=== PATIENT | female | born 1965 | race Caucasian/White ===

== ENCOUNTER 2024-03-24 23:47 | Emergency (ER) | payer OTHER, SELFPAY ==
--- OUTSIDE RECORDS SUMMARY | 2024-03-24 23:50 | XMS REPORT | Continuity of Care Document ---
Author Name Unknown Address [address] [facility]. [address] [place], [place] [id number] [place] [address] [address] [facility] [place] [address] Care Team Providers Care Acid Painter Name Role Phone MONAE MUNROE Primary Care Physician EDIS Xie Attending Clinician Unavailable SHIVAM GOMEZ Attending Clinician Unavail able SHIVAM GOMEZ Attending Clinician Unavail able MONAE MUNROE Attending Clinician Unavaila ble [place]leguyen_Tho Attending Clinician Unavailable Edis Funez Attending Clinician LUCY DANIELS Attending Clinician Unavailable Nguyen_Tho Admitting Clinician Unavailable Payers Payer Name Policy Type Policy Number Effective Date Expirati on Date Source [employer] [id number] 2022 00:00:00 Problems Condition Name Condition Details Condition Category Status Onset Date Resolution Date Last Treatment Date Treating Clinician Comments Source S/P cervical spinal fusion S/P cervical spinal fusion Disease Active 12-18 00:00: 00 [facility] Muscle tightness Muscle tightness Disease Active 12-18 00:00: 00 [facility] Decreased range of motion of shoulder, unspecifie d laterality Decreased range of motion of shoulder, unspecifie d laterality Disease Active 12-18 00:00: 00 [facility] Muscle weakness Muscle weakness Disease Active 12-18 00:00: 00 [facility] Cervical spine degenerati on Cervical spine degenerati on Disease Active 11-19 00:00: 00 [facility] Obesity (BMI 30-39.9) Obesity (BMI 30-39.9) Disease Active 09-30 00:00: 00 [facility] Chronic pain syndrome Chronic pain syndrome Disease Active 07-04 00:00: 00 [facility] Bipolar I disorder, most recent episode (or current) mixed Bipolar I disorder, most recent episode (or current) mixed Disease Active 07-25 00:00: 00 [facility] Persistent disorder of initiating or maintainin g sleep Persistent disorder of initiating or maintainin g sleep Disease Active 07-25 00:00: 00 [facility] Neuropathy Neuropathy Disease Active 07-01 00:00: 00 [facility] Status post lumbar surgery Status post lumbar surgery Disease Active 07-01 00:00: 00 [facility] H/O: CVA (cerebrova scular accident) H/O: CVA (cerebrova scular accident) Disease Active 07-01 00:00: 00 [facility] Depression Depression Disease Active 07-01 00:00: 00 [facility] Generalize d anxiety disorder Generalize d anxiety disorder Disease Active 07-01 00:00: 00 [facility] Allergies, Adverse Reactions, Alerts Allergy Name Allergy Type Status Severity Reaction(s) Onset Date Inactive Date Treating Clinician Comments Source NO KNOWN ALLERGIE S Drug Class Active [facility] Social History Social Habit Start Date Stop Date Quantity Comments Source Tobacco Comment health coaching/handout s declined [facility] Sex Assigned At [facility] Alcohol intake [facility] Cigarettes smoked current (pack per day) - Reported 2018-04-05 00:00:00 2018-04-05 00:00:00 [facility] Cigarette pack-years 2018-04-05 00:00:00 2018-04-05 00:00:00 [facility] History of tobacco use 2016-11-19 00:00:00 Cigarette Smoker [facility] Smoking Status Start Date Stop Date Source Former smoker 2018-04-05 00:00:00 2018-04-05 00:00:00 [facility] Medications Ordered Medication Name Filled Medication Name Start Date Stop Date Current Medication? Ordering Clinician Indication Dosage Frequency Signature (SIG) Comments Components Source SYMBICORT 160-4.5 mcg/actuati on inhaler 7-15 00:00: 00 Yes INHALE 2 PUFFS BY MOUTH TWICE A DAY [facility] CYCLOBENZAP RINE 10 mg tablet 08 00:00: 00 Yes TAKE 1 TABLET BY MOUTH THREE TIMES A DAY [facility] mirtazapine 30 mg tablet 4-05 00:00: 00 Yes [id number] 30mg Take 1 tablet by mouth at bedtime. [facility] meloxicam (MOBIC) 15 mg tablet 3-11 00:00: 00 Yes [id number] 15mg Take 1 tablet by mouth once daily as needed for Pain. [facility] desvenlafax ine succinate 50 mg 24 hr tablet 06-23 00:00: 00 Yes [id number] 50mg Take 1 tablet by mouth daily. [facility] desvenlafax ine succinate (PRISTIQ) 100 mg 24 hr tablet 06-23 00:00: 00 Yes [id number] 100mg Take 1 tablet by mouth daily. [facility] nortriptyli ne 25 mg capsule 05-07 00:00: 00 Yes 25mg Take 1 capsule by mouth at bedtime. [facility] cyclobenzap rine 10 mg tablet 05-07 00:00: 00 Yes 10mg Take 1 tablet by mouth 3 (three) times daily. [facility] meloxicam (MOBIC) 15 mg tablet 2017-05 00:00: 00 Yes 15mg Take 1 tablet by mouth daily. [facility] acetaminoph en-codeine (TYLENOL-CO DEINE #3) 300-30 mg tablet 2017-05 00:00: 00 Yes 1{tbl} Take 1 tablet by mouth every 4 (four) hours as needed for Pain (scale 4-6). [facility] traMADOL 50 mg tablet 2017-05 00:00: 00 Yes 50mg Take 1 tablet by mouth every 6 (six) hours as needed for Pain (scale 4-6) or Pain (scale 7-10). [facility] methocarbam ol 750 mg tablet 2017-05 0 00:00: 00 Yes 750mg Take 1 tablet by mouth 3 (three) times daily. [facility] albuterol sulfate (PROAIR RESPICLICK) 90 mcg/actuati on AePB 01-25 00:00: 00 Yes 2{each} Inhale 2 Each every 4 (four) hours as needed (sob). [facility] tiotropium bromide (SPIRIVA RESPIMAT) 2.5 mcg/actuati on Mist 01-25 00:00: 00 Yes 2{puff} Inhale [address] [facility] methylPREDN ISolone (MEDROL, ADRYAN,) 4 mg tablets 05-07 00:00: 00 Yes Follow package directions [facility] atorvastati n (LIPITOR) 80 mg tablet 01-12 00:00: 00 Yes [id number] 80mg Take 1 tablet by mouth at bedtime. [facility] ARIPiprazol e 5 mg tablet 12-30 00:00: 00 Yes TAKE 1 TABLET BY MOUTH DAILY. [facility] carBAMazepi ne 200 mg 12 hr tablet 12-23 00:00: 00 Yes TAKE 1 TABLET BY MOUTH 2 (TWO) TIMES DAILY. [facility] sennosides- docusate sodium 8.6-50 mg per tablet 11-20 00:00: 00 Yes 1{tbl} Take 1 tablet by mouth 2 (two) times daily. [facility] ursodiol 500 mg tablet 10-26 00:00: 00 Yes TAKE 1 TABLET BY MOUTH 2 (TWO) TIMES DAILY FOR [address] [facility] omeprazole 40 mg capsule 07-04 00:00: 00 Yes [id number] TAKE ONE CAPSULE BY MOUTH EVERY DAY [facility] azithromyci n (ZITHROMAX) 250 mg tablet 01-03 00:00: 00 Yes [id number] Z-Adryan = 500mg day 1, then 250mg days [address] [facility] Encounters Start Date/Time End Date/Time Encounter Type Admission Type Attending [facility] Care Department Encounter ID Source 2024-02-12 15:00:00 Inpatient EDIS MAX [facility] [id number] [facility] 2023-03-05 13:30:00 Inpatient Edis Max [facility] [id number] [facility] 2023-02-13 13:25:00 2023-02-13 13:25:00 Outpatient EDIS MAX [facility] [id number] [facility] 2023-01-20 14:00:00 2023-01-20 14:00:00 Outpatient SHIVAM [facility] [id number] [facility] 2022-12-15 09:43:00 2022-12-15 09:43:00 Outpatient SUMAN CASTRORUBYMONAE ANGUIANO [facility] [id number] [facility] 2022-12-04 12:27:00 2022-12-04 12:27:00 Outpatient MONAE DESAI [facility] [id number] [facility] 2021-05-29 02:35:00 2021-05-29 02:35:00 Outpatient Nguyen_Tho [facility] [id number] [facility] 2021 05:05:00 2021 05:05:00 Outpatient Nguyen_Tho [facility] [id number] [facility] 2019-01-20 00:00:00 2019-01-20 00:00:00 Edis Sanders [facility] [id number] [facility] 2019-01-04 00:00:00 2019-01-04 00:00:00 Edis Sanders [facility] [id number] [facility] 2014-08-31 19:04:00 2014-08-31 22:15:00 Emergency ER LUCY DANIELS [facility] [id number] [facility]
[2024-03-25] MEDS ORDERED: LEVETIRACETAM 500 MG/5 ML VIAL IV ONE (00:10)
[2024-03-25] MEDS ORDERED: NA CHLORIDE 0.9% 100 ML ONE (00:15)
[2024-03-25 01:28] LABS: Absolute Basophils 0.1 K/uL (0-0.5); Absolute Eosinophils 0.1 K/uL (0-0.5); Absolute Lymphocytes (CBC) 1.9 K/uL (0.7-4.9); Absolute Monocytes 0.7 K/uL (0.1-1.3); Absolute Neutrophil 7.5 K/uL (1.8-8.0); Basophils % 0.7 % (0-1.3); Eosinophils % 0.5 % (0-4.4); Hematocrit 35.5 % (36.0-45.0); Hemoglobin 10.9 g/dL (12.0-15.0); Lymphocytes % 19.1 % (15.3-44.8); MCH 25.4 pg (27.0-35.0); MCHC 30.6 g/dL (32.0-36.0); MCV 82.9 fL (80-100); MPV 9.6 fL (7.6-11.3); Monocytes % 6.7 % (3.3-12.3); Nucleated Red Blood Cells % 0.1 % (0-0); Platelets 201 thou/uL (152-406); RBC Red Blood Cell Count 4.29 M/uL (3.86-4.86); Red Cell Distribution Width 19.2 % (12.1-15.2)
[2024-03-25 01:31] LABS: PT Prothrombin Time 9.9 SECONDS (9.4-12.5); PTT, Activated Partial Thromb 21.5 SECONDS (24.3-36.9); Protime INR 0.88
[2024-03-25 01:50] LABS: ALT/SGPT 15 U/L (13-56); AST/SGOT 23 U/L (15-37); Albumin 3.1 g/dL (3.4-5.0); Albumin/Globulin Ratio 0.9 (1.1-1.8); Alkaline Phosphatase 107 U/L (45-117); Anion Gap 15.7 mEq/L (5.0-15.0); BUN Blood Urea Nitrogen 14 mg/dL (7-18); Bicarbonate 15 mEq/L (21-32); Bilirubin Direct < 0.2 mg/dL (0-0.2); Bilirubin Indirect, Calculated 0.1 mg/dL (0.2-0.8); Bilirubin Total 0.3 mg/dL (0.2-1.0); Globulin 3.6 g/dL (2.3-3.5); Glomerular Filtration Rate 72 ml/min (=/>90); Glucose Level 109 mg/dL (74-106); Potassium 3.7 mEq/L (3.5-5.1); Protein, Total 6.7 g/dL (6.4-8.2); Sodium Level 139 mEq/L (136-145)
[2024-03-25 02:09] LABS: Barbiturates NEGATIVE (NEGATIVE); Benzodiazepines NEGATIVE (NEGATIVE); Cocaine NEGATIVE (NEGATIVE); METHAMPHETAM NEGATIVE (NEGATIVE); Methadone NEGATIVE (NEGATIVE); Opiates NEGATIVE (NEGATIVE); Phencyclidine NEGATIVE (NEGATIVE); THC Cannibis NEGATIVE (NEGATIVE)
--- NOTE | 2024-03-25 02:45 | RAD REPORT ---
EXAM DESCRIPTION: CT HEAD AND CERVICAL SPINE WITHOUT IV CONTRAST 03/25/2024 1:03 AM [facility] CLINICAL HISTORY: 59 years, Female, Seizure, trauma, found down. COMPARISON: None. TECHNIQUE: CT imaging of the head and cervical spine were performed without IV contrast. Subsequent 2 -D multiplanar reformats were generated in the sagittal and coronal plane and reviewed. This exam was performed according to our departmental dose-optimization program which includes use of Automated Exposure Control, adjustment of the mA and/or kV according to patient size and/or use of iterative reconstruction technique. Contrast: No intravenous contrast. FINDINGS: Head: Brain: Brain parenchyma as well as the baez-white matter differentiation demonstrate to be within nor mal limits. There is no evidence for acute intraparenchymal hemorrhage. There is no midline shifts and/or mass effect. No focal areas of hypodensities Ventricles/CSF spaces: Normal size and morphology. Orbits: Normal. Paranasal sinuses: Imaged paranasal sinuses are clear. Mastoids/middle ears: Clear. Bones: Calvarium, skull base, and imaged facial bones are normal. Scalp/facial soft tissues: No acute scalp or soft tissue injury. Cervical spine: Curvature: The lordotic curve is preserved. The alignment, of the vertebral bodies are normal. Bones: There is no evidence of fracture or subluxation. Discs: There is degenerative disc disease with anterior spondylosis and posterior osteophyte complex at C4-C6. Spur formation/increased sclerosis anterior arch of C1 and dens. There is there is spinal canal narrowing at C5/C6. Joints: The uncovertebral joints demonstrate unremarkable. Soft tissues: There is no prevertebral soft tissue swelling. Sagittal coronal reformatted images demonstrate no subluxation or bony abnormalities. Lung apices: The lung apices demonstrate to be within normal limits. IMPRESSION: No acute intracranial hemorrhage. No evidence for acute fracture or subluxation of the cervical spine. Degenerative disc disease at C4-C6 with spinal canal narrowing at C5/C6. Electronically signed by: Geronimo Brown MD 03/25/2024 02:00 AM [facility] Due to temporary technical issues with the PACS/Kiyon reporting system, reports are being black d by the in-house radiologist without review as a courtesy to ensure prompt reporting the interpreting radiologist is fully responsible for the content of the report. Transcribed Date/Time: 03/25/2024 2:45 AM
--- NOTE | 2024-03-25 02:50 | ER ---
Nurse's Notes [facility] Name: Jo Ann Stark Age: 59 yrs Sex: Female : 1965 Arrival Date: 03/24/2024 Time: 23:47 Bed 4 Private MD: Diagnosis: Seizure, altered mental status Presentation: 03/24 23:51 Chief complaint: EMS states: PT found in [facility] bathroom. EMS called by staff. PT lg3 stated to EMS that she had a history of seizures and has been off of her Keppra X3 days. one witnessed seizure by EMS in route. IV initiated. no medications administered. Coronavirus screen: At this time, unable to obtain information related to travel outside the [place] Ebola Screen: No symptoms or risks identified at this time. Initial Sepsis Screen: Does the patient meet any 2 criteria? No. Patient's initial sepsis screen is negative. Does the patient have a suspected source of infection? No. Patient's initial sepsis screen is negative. Risk Assessment: Do you want to hurt yourself or someone else? Patient reports no desire to harm self or others. Onset of symptoms was March 24, 2024. 23:51 Method Of Arrival: EMS: [facility] lg3 23:51 Acuity: JAUN 3 lg3 Triage Assessment: 03/25 00:01 General: Appears in no apparent distress. Behavior is flat. Pain: Denies pain. EENT: No lg3 deficits noted. Neuro: Browne Agitation-Sedation Scale (RASS): -1 Drowsy Level of Consciousness is post ictal. Cardiovascular: No deficits noted. Capillary refill < 3 seconds Clubbing of nail beds is absent JVD is absent Patient's skin is warm and dry. Respiratory: No deficits noted. Airway is patent Respiratory effort is even, unlabored, Respiratory pattern is regular, symmetrical. GI: No deficits noted. Abdomen is round non-distended, obese. : No signs and/or symptoms were reported regarding the genitourinary system. Derm: No deficits noted. Skin is intact, is healthy with good turgor, Skin is dry, Skin is normal, Skin temperature is warm. Musculoskeletal: No deficits noted. Circulation, motion, and sensation intact. Range of motion: intact in all extremities. Historical: - Allergies: 00:01 Unable to obtain; lg3 - Home Meds: 00:01 Keppra Oral [Active]; lg3 - PMHx: 00:01 Seizure; lg3 - PSHx: 00:01 Unable to Obtain; lg3 - Immunization history:: Adult Immunizations unknown. - Infectious Disease History:: Denies. - Social history:: Smoking status: unknown. Screenin:54 [facility] ED Fall Risk Assessment (Adult) History of falling in the last 3 months, bm8 including since admission No falls in past 3 months (0 pts) Confusion or Disorientation No (0 pts) Intoxicated or Sedated No (0 pts) Impaired Gait No (0 pts) Mobility Assist Device Used No (0 pt) Altered Elimination No (0 pt) Score/Fall Risk Level 0 - 2 = Low Risk Oriented to surroundings, Maintained a safe environment, Educated pt \T\ family on fall prevention, incl call for assistance when getting out of bed, Assessed \T\ reinforced patient's understanding of fall precautions, Hourly rounding (assess needs \T\ fall precautionary measures) done, Used ambulatory aids as needed (educated on \T\ assisted with), Used gait belt as appropriate. Abuse screen: Denies threats or abuse. Nutritional screening: No deficits noted. Tuberculosis screening: No symptoms or risk factors identified. Assessment: 02:54 Reassessment: Patient appears in no apparent distress at this time. Patient and/or bm8 family updated on plan of care and expected duration. Pain level reassessed. Patient is alert, oriented x 3, equal unlabored respirations, skin warm/dry/pink. pt up and ambulating with minimal assistance. pt able to ambulate approximate 60 feet. Patient denies pain at this time. Patient states feeling better. Patient states symptoms have improved. 03:20 Reassessment:. ha1 03:21 Reassessment: pt is awaiting transportation home. pt to remain in room until 8 transportation to arrive. 03:24 Reassessment: Pt was safely walked by group underwriter and one Tech. steady gait, alert and ay oriented to self, place, and situation. No any distress noted. 03:30 Reassessment: Pt provided a number to her 's phone. The number was called x3 but ay was never answered. Voice mail was not set up on the phone. 04:00 Reassessment: Patient denies pain at this time. ay 04:00 Reassessment: Patient appears in no apparent distress at this time. ay 05:09 Reassessment: No changes from previously documented assessment. ay 06:04 Reassessment: Patient appears in no apparent distress at this time. Patient and/or bm8 family updated on plan of care and expected duration. Pain level reassessed. Patient is alert, oriented x 3, equal unlabored respirations, skin warm/dry/pink. Patient denies pain at this time. Patient states feeling better. Patient states symptoms have improved. General: Appears in no apparent distress. comfortable, Behavior is calm, cooperative, appropriate for age. Pain: Denies pain. Neuro: No deficits noted. Level of Consciousness is awake, alert, obeys commands, Oriented to person, place, time, situation, Appropriate for age Engineering Assistant are equal bilaterally Moves all extremities. Full function Gait is steady, Speech is normal, Facial symmetry appears normal, Pupils are PERRLA. Vital Signs: 03/24 23:51 BP 118 / 78; Pulse 89; Resp 16 S; Temp 98.1(O); Pulse Ox 97% on R/A; Weight 113.4 kg lg3 (R); Height 5 ft. 9 in. (R); 03/25 04:00 BP 110 / 76; Pulse 79; Resp 20; Pulse Ox 97% on R/A; ay 05:00 BP 91 / 70; Pulse 77; Resp 18; Pulse Ox 97% on R/A; ay 06:05 BP 105 / 74; Pulse 80; Resp 17; Temp 98.1; Pulse Ox 97% ; Pain 0/10; bm8 03/24 23:51 Body Mass Index 36.92 (113.40 kg, 175.26 cm) lg3 06:05 Pain Scale: Adult bm8 Merissa Coma Score: 00:01 Eye Response: to voice(3). Motor Response: localizes pain(5). Verbal Response: lg3 confused(4). Total: 12. 02:54 Eye Response: spontaneous(4). Motor Response: obeys commands(6). Verbal Response: bm8 oriented(5). Total: 15. 06:05 Eye Response: spontaneous(4). Motor Response: obeys commands(6). Verbal Response: bm8 oriented(5). Total: 15. ED Course: 03/24 23:51 Patient arrived in ED. lg3 23:51 John Paul Brown MD is Attending Physician. sp3 03/25 00:01 Triage completed. lg3 00:01 Arm band placed on right wrist. lg3 00:03 Maintain EMS IV. Dressing intact. Good blood return noted. Site clean \T\ dry. Gauge \T\ lg 3 site: 22G L Hand. Flushed with 10 mL NS. 00:06 Guille Teague, RN is Primary Nurse. ay 00:43 CT Head C Spine In Process Unspecified. EDMS 02:54 Patient has correct armband on for positive identification. Placed in gown. Bed in low bm8 position. Call light in reach. Side rails up X 1. Seizure precautions initiated. Provided Education on: post er care. Client placed on continuous cardiac and pulse oximetry monitoring. NIBP monitoring applied. Pulse ox on. NIBP on. Door closed. Noise minimized. Warm blanket given. Pillow given. Verbal reassurance given. 02:54 No provider procedures requiring assistance completed. IV discontinued, intact, bm8 bleeding controlled, No redness/swelling at site. Pressure dressing applied. Patient maintains SpO2 saturation greater than 95% on room air. Administered Medications: 00:35 Drug: Keppra IV 1000 mg IV at calculated rate once Route: IV; Rate: calculated rate; bm8 Site: left hand; 03:19 Follow up: Response: No adverse reaction; IV Status: Completed infusion; IV Intake: ha1 100ml Medication: 02:54 VIS not applicable for this client. bm8 Intake: 03:19 IV: 100ml; Total: 100ml. ha1 Outcome: 02:50 Discharge ordered by . sp3 02:54 Discharged to home ambulatory, bm8 02:54 Condition: stable 02:54 Discharge instructions given to patient, family, Instructed on discharge instructions, follow up and referral plans. medication usage, safety practices, Demonstrated understanding of instructions, follow-up care, medications, 02:57 Prescriptions given X 1, bm8 06:08 Patient left the ED. bm8 Signatures: Dispatcher [employer] EDMS Meredith Gonsalez RN RN lg3 John Paul Brown MD MD sp3 Lashonda Rush RN RN ha1 Ricardo Rodney RN RN bm8 Guille Teague RN RN ay Corrections: (The following items were deleted from the chart) 00:01 00:01 Home Meds: Unable to obtain; lg3 lg3
--- NOTE | 2024-03-25 02:50 | EDPHYS ---
Physician Documentation [facility] Name: Jo Ann Stark Age: 59 yrs Sex: Female : 1965 Arrival Date: 03/24/2024 Time: 23:47 Bed 4 Private MD: ED Physician John Paul Brown HPI: 03/25 00:03 This 59 yrs old Female presents to ER via EMS with complaints of Seizure. sp3 00:03 59-year-old female with history of seizures found with altered mental status in a sp3 [facility] by [facility] [facility] who activated EMS and brought her to the ED. Patient had seizure in the ambulance as well. She was alert and oriented x 4 upon initial arrival however is now postictal. Per EMS, patient ran out of her Keppra for the last 4 days. She denied at that time any other symptoms including headache, chest pain or shortness of breath. Currently patient is postictal therefore history, physical and ROS is limited.. Historical: - Allergies: 00:01 Unable to obtain; lg3 - Home Meds: 00:01 Keppra Oral [Active]; lg3 - PMHx: 00:01 Seizure; lg3 - PSHx: 00:01 Unable to Obtain; lg3 - Immunization history:: Adult Immunizations unknown. - Infectious Disease History:: Denies. - Social history:: Smoking status: unknown. ROS: 00:03 Unable to obtain ROS due to altered mental status, sp3 Exam: 00:04 Constitutional: This is a well developed, well nourished patient who is awake, alert, sp3 and in no acute distress. Neck: Trachea midline, no thyromegaly or masses palpated, and no cervical lymphadenopathy. Supple, full range of motion without nuchal rigidity, or vertebral point tenderness. No Meningismus. Chest/axilla: Normal chest wall appearance and motion. Nontender with no deformity. No lesions are appreciated. Cardiovascular: Regular rate and rhythm with a normal S1 and S2. No gallops, murmurs, or rubs. Normal PMI, no JVD. No pulse deficits. Respiratory: Lungs have equal breath sounds bilaterally, clear to auscultation and percussion. No rales, rhonchi or wheezes noted. No increased work of breathing, no retractions or nasal flaring. Back: No spinal tenderness. No costovertebral tenderness. Full range of motion. 00:04 Neuro: Patient postictal however arousable. Moves all 4 extremities. Ocular exam is normal including pupils. Vital signs currently normal., Vital Signs: 03/24 23:51 BP 118 / 78; Pulse 89; Resp 16 S; Temp 98.1(O); Pulse Ox 97% on R/A; Weight 113.4 kg lg3 (R); Height 5 ft. 9 in. (R); 03/25 04:00 BP 110 / 76; Pulse 79; Resp 20; Pulse Ox 97% on R/A; ay 05:00 BP 91 / 70; Pulse 77; Resp 18; Pulse Ox 97% on R/A; ay 06:05 BP 105 / 74; Pulse 80; Resp 17; Temp 98.1; Pulse Ox 97% ; Pain 0/10; bm8 03/24 23:51 Body Mass Index 36.92 (113.40 kg, 175.26 cm) lg3 06:05 Pain Scale: Adult bm8 [place] Coma Score: 00:01 Eye Response: to voice(3). Motor Response: localizes pain(5). Verbal Response: lg3 confused(4). Total: 12. 02:54 Eye Response: spontaneous(4). Motor Response: obeys commands(6). Verbal Response: bm8 oriented(5). Total: 15. 06:05 Eye Response: spontaneous(4). Motor Response: obeys commands(6). Verbal Response: bm8 oriented(5). Total: 15. MDM: 03/24 23:51 Medical Screening Exam initiated sp3 03/25 00:04 Data reviewed: vital signs, nurses notes, EMS record, old medical records, lab test sp3 result(s), radiologic studies. ED course: 59-year-old female with seizure and altered mental status. Differential diagnosis includes seizure, postictal period, other intracranial process, electrolyte disturbance, among others. Workup will include full laboratory workup including toxicology, CT scan of the head and general observation. Keppra 1 g IV will be given. Disposition pending workup and patient course.. 02:49 ED course: Full workup negative including CT head and toxicology. Patient is now sleepy sp3 but arousable. We will refill her Keppra and discharge her home. Vital signs are normal.. 03/24 23:52 Order name: Acetaminophen; Complete Time: 02: sp3 03/24 23:52 Order name: Basic Metabolic Panel; Complete Time: 02: sp3 03/24 23:52 Order name: CBC with Diff; Complete Time: 02: sp3 03/24 23:52 Order name: ETOH Level; Complete Time: 02: sp3 03/24 23:52 Order name: Hepatic Function; Complete Time: 02: sp3 03/24 23:52 Order name: PT-INR; Complete Time: 02: sp3 03/24 23:52 Order name: Ptt, Activated; Complete Time: 02: sp3 03/24 23:52 Order name: Salicylate; Complete Time: 02: sp3 03/24 23:52 Order name: Urine Drug Screen; Complete Time: 02: sp3 03/24 23:52 Order name: CT Head C Spine; Complete Time: 02:47 sp3 03/24 23:52 Order name: IV Saline Lock; Complete Time: 00:13 sp3 03/24 23:52 Order name: Labs collected and sent; Complete Time: 00:13 sp3 03/24 23:52 Order name: Suicide Screening ([place]); Complete Time: 00: sp3 03/24 23:53 Order name: Cath; Complete Time: 03:19 sp3 Administered Medications: 00:35 Drug: Keppra IV 1000 mg IV at calculated rate once Route: IV; Rate: calculated rate; bm8 Site: left hand; 03:19 Follow up: Response: No adverse reaction; IV Status: Completed infusion; IV Intake: ha1 100ml Disposition Summary: 03/25/24 02:50 Discharge Ordered Notes: Location: Home sp3 Condition: Stable sp3 Diagnosis - Seizure, altered mental status sp3 Followup: sp3 - With: Private Physician - When: Upon discharge from the Emergency Department - Reason: Continuance of care Discharge Instructions: - Discharge Summary Sheet sp3 - Seizure, Adult sp3 Forms: - Medication Reconciliation Form sp3 - Antibiotic Education sp3 - Prescription Opioid Use sp3 - Patient Portal Instructions sp3 - Leadership Thank You Letter sp3 Prescriptions: - Keppra 500 mg Oral Tablet - take 1 tablet ORAL route every 12 hours; 20 tablet; Refills: 0, Product sp3 Selection Permitted Signatures: Dispatcher [employer] Meredith Salinas RN RN lg3 John Paul Brown MD MD sp3 Ricardo Rodney RN RN bm8 Lashonda Rush RN ha1 Corrections: (The following items were deleted from the chart) 00:01 00:01 Home Meds: Unable to obtain; lg3 lg3
[2024-03-25 08:38] VITALS: TEMP 98.1; O2SAT 97
[2024-03-25 08:42] VITALS: BP 105/74
== END 2024-03-25 06:08 | disposition home or self-care (01) ==
LOC: ER 23:47
DX: G40.909 Epilepsy, unspecified, not intractable, without status epilepticus (principal)
CPT/HCPCS: 36415; 70450; 72125; 80048; 80076; 80143; 80179; 80307; 82077; 85025; 85610; 85730; 96365; 96366; 99284; J1953